=== PATIENT | female | born 1965 | race Asian ===

== ENCOUNTER → 2017-05-27 | Outpatient (CLI) | payer OTHER | LOC: BHFA 13:30 | PROVIDERS: ATTEND Internal Medicine Cardiovascular Disease | DX: R55 Syncope and collapse (principal) ==

== ENCOUNTER → 2017-07-25 | Outpatient (CLI) | payer OTHER | LOC: SBRMNEURO 21:00 | PROVIDERS: ATTEND Psychiatry & Neurology Sleep Medicine | DX: Z13.89 Encounter for screening for other disorder (principal) ==

== ENCOUNTER 2017-09-26 11:02 | Inpatient (IN) | payer OTHER ==
[2017-09-26] MEDS ORDERED: LORazepam 2 MG/ML INJ IM ONE (12:11)
[2017-09-26] MEDS ORDERED: OLANZapine 10 MG/2 ML VIAL ONE (13:27)
--- NOTE | 2017-09-26 13:27 | EDPHY ---
General - History Smoking Status: Current every day smoker Narrative: CHIEF COMPLAINT: SI HISTORY OF PRESENT ILLNESS: Patient reports feeling suicidal last night and cutting her left forearm with attempt to kill herself. She has been feeling very anxious and depressed and thus wanted to . This is not a new sensation for her, but is been more prominent. She reportedly arrive with her therapist at bedside, but the therapist is not there during my examination. She keeps telling me that she " is really anxious and needs something for anxiety right now. I'm not doing well. " She admits the self-harm and admits to wanting to do so we discharged her. Will not provide any modifying factors. Will not provide any radiating complaints. No other associated complaints or modifying factors obtainable. PSYCHIATRIC DIAGNOSES: Anxiety, depression, suicide attempt, PTSD, bipolar PRIOR PSYCHIATRIC EVALUATIONS: Multiple. Psychiatrist is Dr. Adhikari. PCP Dr. Luciano. Therapist is Humaira Haque M1/DETAINER: 1:27 p.m., September 26, [address] Eddie Mccoy REVIEW OF SYSTEMS: Ten systems reviewed and are negative unless otherwise noted in the HPI EXAMINATION General Appearance: Alert, no distress, fidgeting anxious Head: normocephalic, atraumatic Eyes: Pupils equal and round, no conjunctival pallor or injection ENT, Mouth: Mucous membranes moist Neck: Normal inspection, supple, non-tender Respiratory: No retractions or distress Cardiovascular: Regular rate. Symmetric radial pulses 2+ Neurological: GCS 15. A&O, nonfocal, strength is symmetric in all 4 limbs Skin: Warm and dry, no rash. There is an 8 cm laceration of the left forearm, volar. No active bleeding. No foreign body. No exposure of the underlying tendon Extremities: Tenderness in the area of laceration of the left orbit. Range of motion symmetric in the extremities. Psychiatric: Mood and affect normal DIFFERENTIAL DIAGNOSES: Including but not limited to suicidal ideation, depression, anxiety, PTSD, bipolar disorder MDM: 1:27 p.m. Suicide attempt with ongoing anxiety. Left forearm laceration was done at 9:00 p.m. last night. It appears to be superficial but she will not allow me to formally evaluated. There is no pulsatile bleeding when she removed the dressing. I was contacted by the RN prior to my examination asking for assistance with her anxiety. I verbalized an order for Ativan 2 mg. This was administered but has not improved her symptoms. I have ordered Zyprexa for the anxiety. I will re-evaluate the wound when she will allow me to. Psychiatric evaluation will be necessary. I have completed an M1 hold, and Dr. Mccoy has signed. 2:27 p.m. Patient re-evaluated. She is now resting more comfortably. I have re- evaluated the left forearm wound. This will need irrigation and Steri-Strips but does not require suture repair, nor could we do so at this time given her delayed presentation. 3:30 p.m. Patient is asleep 4:25 p.m. [facility] imaging engineerBro. She recommends inpatient care. She is currently looking for placement at this time. 5:20 p.m. Patient is still awaiting placement at this time. I discussed the case with Dr. Mccoy. He will assume care the patient. Please see his note for final disposition. SUPERVISION: Patient was independently examined, but I discussed the case with my secondary supervising physician Dr. Mccoy. (Hal Spain) Medical Decision Making: I evaluated the patient again at 6:15 p.m.. Patient is stable. She and I discussed her depression and self injury. The exam shows now a Steri-Strips laceration to the left forearm. I reviewed the patient's labs and she and I discussed treatment plan including need for admission. She expresses understanding and agreement. Patient has been accepted at [address] [place] [address] for further evaluation I discussed this with the patient as well. She expresses understanding and agreement. (Eddie Mccoy) - Objective Vital Signs: Initial Vital Signs Temperature (C) 98.1 F 09/26/17 11:10 Heart Rate 105 H 09/26/17 11:10 Respiratory Rate 20 09/26/17 11:10 Blood Pressure 118/86 H 09/26/17 11:10 O2 Sat (%) 98 09/26/17 11:10 O2 Delivery Mode Room Air Allergies/Adverse Reactions: No Known Allergies Allergy (Verified 09/26/17 11:22) Home Medications: Medication Instructions Recorded Herbals/Supplements -Info Only 1 ea PO DAILY 09/26/17 Quetiapine Fumarate [Quetiapine 300 mg PO HS 09/26/17 Fumarate] busPIRone [Buspar (*)] 10 mg PO BID 09/26/17 clonazePAM [klonoPIN (*)] 2 mg PO BID 09/26/17 metFORMIN HCL [Metformin HCl] 500 mg PO BIDMEAL 09/26/17 Laboratory Results: Laboratory Results 09/26/17 14:46 09/26/17 13:06 09/26/17 13:06 Vitamin B12 992 pg/mL H pg/mL (239-931) TSH 0.376 uIU/mL L uIU/mL (0.465-4.680) Medications Given: Buspirone HCl (Buspar) 5 mg PO TID [facility] Stop: 03/26/18 15:59 Last Admin: 09/27/17 20:06 Dose: 5 mg Clonazepam (Klonopin) 1 mg PO HS [facility] Stop: 03/26/18 20:59 Last Admin: 09/27/17 20:06 Dose: 1 mg Docusate Sodium (Colace) 100 mg PO BID [facility] Stop: 03/26/18 11:14 Last Admin: 09/27/17 20:05 Dose: 100 mg Metformin HCl (Glucophage) 500 mg PO BIDMEAL [facility] Stop: 03/26/18 07:59 Last Admin: 09/27/17 20:06 Dose: 500 mg Olanzapine (Zyprexa Zydis) 10 mg PO Q4H PRN PRN Reason: Agitation, Psychosis Stop: 03/25/18 21:40 Last Admin: 09/27/17 17:43 Dose: 10 mg Quetiapine Fumarate (Seroquel) 200 mg PO BID [facility] Stop: 03/26/18 12:59 Last Admin: 09/27/17 20:05 Dose: 200 mg Quetiapine Fumarate (Seroquel) 400 mg PO [facility] Stop: 03/26/18 20:59 Last Admin: 09/27/17 20:05 Dose: 400 mg Discontinued Medications Buspirone HCl (Buspar) 10 mg PO BID [facility] Stop: 03/26/18 08:59 Last Admin: 09/27/17 08:20 Dose: 10 mg Clonazepam (Klonopin) 2 mg PO BID [facility] Stop: 03/25/18 21:44 Last Admin: 09/27/17 08:20 Dose: 2 mg Lorazepam (Ativan Injection) 2 mg IM EDNOW ONE Stop: 09/26/17 12:12 Last Admin: 09/26/17 12:16 Dose: 2 mg Olanzapine (Zyprexa Im Injection) 10 mg IM EDNOW ONE Stop: 09/26/17 13:31 Last Admin: 09/26/17 13:46 Dose: 10 mg Quetiapine Fumarate (Seroquel) 200 mg PO ONCE ONE Stop: 09/27/17 11:01 Last Admin: 09/27/17 10:54 Dose: 200 mg Departure - Departure Disposition: [facility] IP Clinical Impression: Suicidal ideation, Attempted suicide Condition: Fair
[2017-09-26] MEDS: OLANZapine 10 MG/2 ML VIAL IM ONE (13:46)
[2017-09-26 13:48] LABS: ANION GAP 12 mEq/L (8-16); CALCIUM 9.8 mg/dL (8.5-10.4); CARBON DIOXIDE 24 mEq/l (22-31); CHLORIDE 107 mEq/L (97-110); CREATININE 0.9 mg/dL (0.6-1.0); ETHANOL SERUM < 10 mg/dL (0-10); GLOMERULAR FILTRATION RATE > 60; GLUCOSE 95 mg/dL (70-100); POTASSIUM 4.2 mEq/L (3.5-5.2); SODIUM 143 mEq/L (134-144)
[2017-09-26 14:57] LABS: % IMMATURE GRANULYOCYTES 0.4 % (0.0-1.1); ABSOLUTE IMMATURE GRANULOCYTES 0.02 10^3/uL (0.00-0.10); ADD DIFF? NO; ADD MORPH? NO; ADD SCAN? NO; ATYPICAL LYMPHOCYTE FLAG 0 (0-99); FRAGMENT RBC FLAG 0 (0-99); HEMATOCRIT 43.8 % (38.0-47.0); LEFT SHIFT FLG 0 (0-99); LIPEMIA HEMOLYSIS FLAG 90 (0-99); MEAN CELL HEMOGLOBIN 31.6 pg (27.9-34.1); MEAN CELL HEMOGLOBIN CONCENTR. 34.2 g/dL (32.4-36.7); MEAN CELL VOLUME 92.2 fL (81.5-99.8); MEAN PLATELET VOLUME 9.8 fL (8.7-11.7); PLATELET CLUMPS FLAG 0 (0-99); PLATELET COUNT 206 10^3/uL (150-400); RED BLOOD CELL COUNT 4.75 10^6/uL (4.18-5.33); RED CELL DISTRIBUTION WIDTH 11.5 % (11.5-15.2)
[2017-09-26] MEDS ORDERED: LORazepam 0.5 MG TAB PO PRN (21:41)
[2017-09-26] MEDS ORDERED: NICOTINE POLACRILEX 2 MG GUM B PRN (21:41)
[2017-09-26] MEDS ORDERED: MAG HYDROX/AL HYDROX/SIMETH 30 ML UDCUP PO PRN (21:41)
[2017-09-26] MEDS ORDERED: MAGNESIUM HYDROXIDE 30 ML UDCUP PO PRN (21:41)
[2017-09-26] MEDS: clonazePAM 1 MG TAB PO SCH (22:02)
[2017-09-26] MEDS: OLANZapine DISINTEGR 10 MG TAB PO PRN (22:02)
[2017-09-27] MEDS: clonazePAM 1 MG TAB PO SCH (08:20)
[2017-09-27] MEDS: metFORMIN HCL 500 MG TAB PO SCH ×2 (08:20→20:06)
[2017-09-27] MEDS ORDERED: busPIRone 10 MG TAB PO SCH (09:00)
[2017-09-27] MEDS ORDERED: QUEtiapine FUMARATE 200 MG TAB PO ONE (11:00)
[2017-09-27] MEDS ORDERED: clonazePAM 0.5 MG TAB PO PRN (11:09)
[2017-09-27] MEDS: QUEtiapine FUMARATE 200 MG TAB PO SCH ×3 (11:42→20:05)
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
[2017-09-27] MEDS: DOCUSATE SODIUM 100 MG CAP PO SCH ×2 (12:18→20:05)
--- NOTE | 2017-09-27 13:30 | SOAPPROG ---
SOAP Progress Note Assessment/Plan: Assessment: Plan: Subjective: Spoke with Dr. Adhikari. He reports patient was on Clonazepam 0.5mg PRN anxiety, max 2mg/day. He reports patient had some benefit from Buspar and would recommend continuing this medication and taper/reduce Clonazepam. Agrees with assessment of Bipolar Disorder with psychotic features, PTSD, Borderline PD. Objective: Vital Signs Temp Pulse Resp BP Pulse Ox 36.4 C 88 14 99/55 L 94 09/27/17 06:00 09/27/17 06:00 09/27/17 06:00 09/27/17 06:00 09/27/17 06:00 ICD10 Worksheet Patient Problems: Problems Problem Status Onset Attempted suicide Acute Bipolar disorder, curr episode depressed, severe, w/psychotic features Acute Borderline personality disorder Acute Posttraumatic stress disorder Acute Suicidal ideation Acute
--- NOTE | 2017-09-27 13:38 | BCON ---
[f rep st] BEHAVIORAL HEALTH CONSULTATION INTERNAL MEDICINE CONSULTATION DATE OF CONSULTATION: 09/27/2017 REFERRING PHYSICIAN: Albin Gomez MD REASON FOR REFERRAL: Medical clearance for inpatient behavioral health stay. HISTORY OF PRESENT ILLNESS: This patient came to the [facility] Emergency Department yesterday. She had cut her left forearm the night before in an attempt to commit suicide. She had been feeling anxious and depressed. She was evaluated by the mental health team and admitted for further psychiatric care. She currently is without any acute complaints. PAST MEDICAL HISTORY: 1. Ruptured cerebral aneurysm in 1997. 2. Psychiatric diagnoses including bipolar disorder, PTSD, and borderline personality disorder. 3. Multiple intestinal obstructions. 4. Renal abscess. 5. Hyperthyroidism. PAST SURGICAL HISTORY: She has had a drainage of the renal abscess, and she reports she has had 6 abdominal surgeries for intestinal obstructions. She had initial surgery when she was 16, she is not exactly sure of the indication for that surgery. SOCIAL HISTORY: She is . She moved to [place] approximately 3 years ago to be near her sister. Her sister often stays with her. She is a cigarette smoker. FAMILY HISTORY: Significant for mental health issues. REVIEW OF SYSTEMS: She has lost greater than 20 pounds over several months. She reports she is losing weight because she is taking metformin, and that was the reason that medication was prescribed. She denies symptoms referable to the thyroid including no fatigue, no tremor, no sweats, and no change in bowel habits. Otherwise, a 10-point review of systems is negative. PHYSICAL EXAM: GENERAL: This is a well-nourished, well-developed woman, appears her chronologic age, cooperative, in no acute distress. HEENT: Extraocular movements are intact. Pupils are equal, round, reactive to light. Mucous membranes are moist. Dentition is in good condition. NECK: Supple with no thyromegaly. HEART: There is a regular rate and rhythm with no murmurs , rubs, or gallops. LUNGS: Clear to auscultation bilaterally. ABDOMEN: Has a midline surgical scar. Abdomen is soft, nontender, nondistended with normoactive bowel sounds. EXTREMITIES: There is no cyanosis, clubbing, or edema. There is approximately an 8 cm superficial laceration on the palmar aspect of the left forearm, closed with Steri-Strips with minimal eschar along the laceration, and no drainage or erythema. NEUROLOGIC: She is alert and oriented x3. Cranial nerves 2-12 are grossly intact. There is no focal weakness. Sensation is intact to light touch. ASSESSMENT AND RECOMMENDATIONS: 1. Mental health issues, pending further evaluation and management per Psychiatry and the mental health team. 2. Tobacco dependence syndrome. Advised smoking cessation. 3. Superficial laceration. Needs no particular care. 4. Weight loss. Unclear whether it is due to taking metformin or related to history of thyroid disease versus mental health issues. It is more than would be expected from taking metformin. Observe for normalization of oral intake. 5. History of hyperthyroidism. She reports that she was under the care of an commissary agent and no longer has thyroid abnormality. She said she had a thyroid test in the past week that came out as normal, so I will not recommend further testing of the thyroid. I see no medical contraindications to this patient's continued stay on the inpatient behavioral health unit or to any psychiatric medications or procedures. Thank you very much for including me in the care of this patient and please do not hesitate to contact me or the Hospitalist Service should there be need for further medical evaluation. /[id number]/MODL MTDD
[2017-09-27] MEDS: OLANZapine DISINTEGR 10 MG TAB PO PRN (17:43)
[2017-09-27] MEDS: busPIRone 5 MG TAB PO SCH ×2 (17:43→20:06)
[2017-09-27] MEDS ORDERED: clonazePAM 1 MG TAB PO SCH (21:00)
[2017-09-27] MEDS ORDERED: QUEtiapine FUMARATE 300 MG TAB PO SCH (21:00)
[2017-09-28] MEDS: metFORMIN HCL 500 MG TAB PO SCH ×2 (08:05→16:22)
[2017-09-28] MEDS: busPIRone 5 MG TAB PO SCH (08:05)
[2017-09-28] MEDS: QUEtiapine FUMARATE 200 MG TAB PO SCH ×2 (08:06→20:25)
[2017-09-28] MEDS: DOCUSATE SODIUM 100 MG CAP PO SCH ×2 (08:06→20:25)
--- NOTE | 2017-09-28 10:42 | SOAPPROG ---
SOAP Progress Note Assessment/Plan: Assessment: Bipolar Disorder type I, depressed with mixed and psychotic features Borderline Personality Disorder with chronic suicidal thoughts and chronic self- harm History of Post-Traumatic Stress Disorder Sedative Use Disorder Post-menopausal, borderline type II diabetes Possible borderline hyperthyroidism Patient reported taking 4mg Klonopin daily prior to admission but was prescribed 0.5mg QID PRN anxiety per psychiatrist, confirmed in PDMP. Patient admitted on M-1 hold after cutting left arm and reporting suicidal thoughts to outpatient therapist. Patient appears dysphoric, irritable, and paranoid with and cut on arm with a plastic fork this AM 09/28. Patient has a history of chronic suicidal thoughts and superficial cutting on arms since age 18. Patient reported violent thoughts without plan or intent, toward sister 09/27/17. Plan: Patient on M-1 hold Line of sight precautions to reduce self-harm Education about Borderline Personality Disorder. Discussed mindfulness and distraction and relaxation skills. Spoke on phone with sister Camila Lira [phone]. Discussed patient made violent statements toward her, duty to warn. Request hospitalist exam right forearm superficial cut to clarify if it needs sutures or futher thyroid function testing Continue Seroquel 200mg QAM, 200mg QPM, 400mg QHS for mood stability and paranoia, increased after admission Discontinue Buspar, ineffective Reduce/taper Klonopin 0.5mg QHS Continue Hydroxyzine 25mg [id number] PRN anxiety or insomnia Discussed risks/benefits of Depakote for mood stabilization and sedative withdrawal management, including risk of hepatitis, pancreatitis, thrombocytopenia, sedation, delirium Start Depakote 250mg PO TID Monitor mood stability, paranoia, violent thoughts, impulse control, judgment, coping skills to manage chronic thoughts of self-harm 09/28/17 10:46 Subjective: "Really depressed, really upset, everyone is against me, other patients can say what ever they want, no one likes me, I grabbed a fork and cut myself" Patient reports yesterday reporting in group that she reported thoughts to hurt her sister and continued thoughts of killing herself 'then everyone was against me, they were talking about me, no one wants to help me.' Reports later feeling upset and suicidal. Slept overnight but this AM took a plastic fork and cut right forearm. Reports feeling hopeless with no reason to live. Reports no coping skills to use if having thoughts of self-harm or urges to harm self on the unit. Reports yesterday having brief thoughts of wanting to hurt or kill her sister. Reports no intention to to this 'I love my sister' and no specific plan to hurt her sister if she was not in the hospital. Denies stiffness or excessive sedation from increased Seroquel. Patient reports past [place] trial in the past was not helpful. Reports no benefit from past trials of Prozac, Paxil, Zoloft, and Wellbutrin. Objective: Vital Signs Temp Pulse Resp BP Pulse Ox 37.1 C 95 16 101/58 L 96 09/28/17 06:00 09/28/17 06:00 09/28/17 06:00 09/28/17 06:00 09/28/17 06:00 Alert female. Superficial laceration right forearm and left forearm. Sitting alone in room on floor initially. Speech RRR, loud at times. Mood ' depressed' affect irritable, angry, sad. Thoughts organized. Reports feeling hopeless and suicidal and cut arm this AM with plastic fork. Reports violent thoughts yesterday toward sister, denies intent or plan. Reports AH of whispering yesterday but not today. Reports paranoia 'everyone is against me.' Insight poor, judgment impaired. B12 WNL. TSH borderline low. Staff reports patient yesterday in group reported thoughts of harming her sister , without plan or intent, but was screaming and agitated and crying in group. Patient was labile, screaming, crying, angry but compliant with medications and slept 8-9 hours. - Time Spent With Patient Time Spent With Patient: 45 minutes - Pending Discharge Pending Discharge Within 24 Hours: No Pending Discharge Within 48 Hours: No ICD10 Worksheet Patient Problems: Problems Problem Status Onset Attempted suicide Acute Bipolar disorder, curr episode depressed, severe, w/psychotic features Acute Borderline personality disorder Acute Posttraumatic stress disorder Acute Suicidal ideation Acute
[2017-09-28] MEDS: OLANZapine DISINTEGR 10 MG TAB PO PRN ×2 (12:23→16:28)
[2017-09-28] MEDS ORDERED: DIVALPROEX NA 250 MG TAB PO ONE (13:02)
--- NOTE | 2017-09-28 13:11 | SOAPPROG ---
SOAP Progress Note Assessment/Plan: Assessment: # lacerations. Healing well on left forearm. Very superficial on right forearm with no indication for any treatment. # hyperthyroidism. TSH mildly suppressed. Get records from [facility]. Patient previously reported to me that her thyroid had normalized and that she was not under treatment anymore. 09/28/17 13:09 Subjective: Asked to see patient regarding laceration on right forearm, self-inflicted with plastic fork, and regarding TSH result. She is without any acute complaints. Objective: Vital Signs Temp Pulse Resp BP Pulse Ox 37.1 C 95 16 101/58 L 96 09/28/17 06:00 09/28/17 06:00 09/28/17 06:00 09/28/17 06:00 09/28/17 06:00 Physical Exam - Physical Exam General Appearance: WD/WN, alert, no apparent distress Respiratory: No respiratory distress, No accessory muscle use Skin: normal color, warm/dry, other (Laceration on left volar forearm with Steri -Strips in place, a eschar minimal along laceration, no erythema or discharge. Very superficial laceration volar right forearm approximately 15 cm.) Neuro/Psych: no motor/sensory deficits, alert, normal mood/affect, oriented x 3 ICD10 Worksheet Patient Problems: Problems Problem Status Onset Attempted suicide Acute Bipolar disorder, curr episode depressed, severe, w/psychotic features Acute Borderline personality disorder Acute Posttraumatic stress disorder Acute Suicidal ideation Acute
[2017-09-28] MEDS: DIVALPROEX NA 250 MG TAB PO SCH ×2 (16:22→20:25)
[2017-09-28] MEDS: clonazePAM 1 MG TAB PO SCH (20:25)
[2017-09-29] MEDS: DOCUSATE SODIUM 100 MG CAP PO SCH ×2 (07:49→20:49)
[2017-09-29] MEDS: DIVALPROEX NA 250 MG TAB PO SCH ×3 (07:50→20:49)
[2017-09-29] MEDS: QUEtiapine FUMARATE 200 MG TAB PO SCH ×3 (07:50→20:49)
[2017-09-29] MEDS: metFORMIN HCL 500 MG TAB PO SCH ×2 (07:55→18:06)
[2017-09-29] MEDS: ACETAMINOPHEN 325 MG TAB PO PRN ×2 (08:06→12:09)
--- NOTE | 2017-09-29 09:06 | SOAPPROG ---
SOAP Progress Note Assessment/Plan: Assessment: Bipolar Disorder type I, depressed with mixed and psychotic features Borderline Personality Disorder with chronic suicidal thoughts and chronic self- harm History of Post-Traumatic Stress Disorder Sedative Use Disorder Post-menopausal, borderline type II diabetes Possible thyroid disorder Patient reported taking 4mg Klonopin daily prior to admission but was prescribed 0.5mg QID PRN anxiety per psychiatrist, confirmed in PDMP. Patient admitted on M-1 hold after cutting left arm and reporting suicidal thoughts to outpatient therapist. Patient cut right arm with a plastic fork AM 09/28 and was cutting right arm with an nyla board 09/28 PM. Patient has a history of chronic suicidal thoughts and superficial cutting on arms since age 18. Patient reported violent thoughts without plan or intent, toward sister 09/27/17 , sister notified. Patient received Zydis PRN yesterday PM for agitation; patient is tolerating Depakote and increased Seroquel and appears more calm and less distressed this AM but has continued urges for self-harm without clear coping skills. Plan: Patient on M-1 hold File Short Term Certification,, patient a danger to herself Line of sight precautions to reduce self-harm Education about Borderline Personality Disorder. Discussed mindfulness and distraction and relaxation skills. Continue Seroquel 200mg QAM, 200mg QPM, 400mg QHS for mood stability and paranoia, increased after admission Taper Klonopin 0.5mg PO QHS for > one week Continue Hydroxyzine 25mg [id number] PRN anxiety or insomnia, Zydis 10mg PRN agitation Continue Depakote 250mg PO TID, started 09/28 for mood stabilization and to assist with sedative taper Monitor mood stability, paranoia, violent thoughts, impulse control, judgment, coping skills to manage chronic thoughts of self-harm Requested records from [facility] 09/29/17 09:06 Subjective: 'doing better, more calm, less racing thoughts.' Patient reports overall feeling improved this AM. Reports a reduction in racing thoughts and feeling less agitated, denies paranoia or AH. Reports yesterday having severe mood swings and agitation, tried to mutilate self by rubbing nail-file nyla board on right forearm. Reports sleeping better last night and tolerating Depakote so far without side effects. Reports she doesn't want to harm her sister, has never been violent toward sister, and reports not owning a gun. Reports feeling rejected and abandoned and betrayed by sister, who lied to her about sisters trip to [place]. Reports continued urges to cut on arm due to 'intense emotions.' Reports she doesn't care if she lives or dies. Unable to name coping skills to use if having urges to self-harm. Objective: Vital Signs Temp Pulse Resp BP Pulse Ox 36.7 C 92 16 107/60 94 09/29/17 06:00 09/29/17 06:00 09/29/17 06:00 09/29/17 06:00 09/29/17 06:00 Alert female, ambulatory, appears slowed. Speech RRR soft voice. Mood 'doing better, more calm, less racing thoughts.' Affect restricted. Thoughts organized but circumstantial. Denies SI or HI but reports continued urges to cut on arm. Denies violent thoughts toward sister or others. Denies AH or paranoia. Staff report patient slept overnight. Yesterday was cutting on right forearm with a nyla board, which was confiscated. Compliant with medications. Got a PRN Zydis 10mg for agitation at 16:30. - Time Spent With Patient Time Spent With Patient: 45 minutes - Pending Discharge Pending Discharge Within 24 Hours: No Pending Discharge Within 48 Hours: No ICD10 Worksheet Patient Problems: Problems Problem Status Onset Attempted suicide Acute Bipolar disorder, curr episode depressed, severe, w/psychotic features Acute Borderline personality disorder Acute Posttraumatic stress disorder Acute Suicidal ideation Acute
[2017-09-29] MEDS: hydrOXYzine HCL 25 MG TAB PO PRN (15:16)
[2017-09-29] MEDS: clonazePAM 1 MG TAB PO SCH (20:49)
[2017-09-30] MEDS: OLANZapine DISINTEGR 10 MG TAB PO PRN ×2 (01:20→10:25)
[2017-09-30] MEDS: hydrOXYzine HCL 25 MG TAB PO PRN (01:20)
[2017-09-30] MEDS: metFORMIN HCL 500 MG TAB PO SCH ×2 (08:16→16:56)
[2017-09-30] MEDS: DIVALPROEX NA 250 MG TAB PO SCH (08:17)
[2017-09-30] MEDS: DOCUSATE SODIUM 100 MG CAP PO SCH ×2 (08:17→21:13)
[2017-09-30] MEDS: QUEtiapine FUMARATE 200 MG TAB PO SCH ×3 (08:18→21:12)
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
[2017-09-30] MEDS: SENNOSIDES 1 TAB PO SCH ×2 (14:12→21:12)
[2017-09-30] MEDS ORDERED: DIVALPROEX NA 250 MG TAB PO ONE (14:15)
[2017-09-30] MEDS: DIVALPROEX NA 500 MG TAB PO SCH (21:12)
[2017-09-30] MEDS: clonazePAM 1 MG TAB PO SCH (21:13)
[2017-10-01] MEDS: hydrOXYzine HCL 25 MG TAB PO PRN ×2 (01:17→12:10)
[2017-10-01] MEDS: OLANZapine DISINTEGR 10 MG TAB PO PRN (01:17)
[2017-10-01] MEDS: metFORMIN HCL 500 MG TAB PO SCH ×2 (08:31→17:27)
[2017-10-01] MEDS: QUEtiapine FUMARATE 200 MG TAB PO SCH ×3 (08:31→19:48)
[2017-10-01] MEDS: SENNOSIDES 1 TAB PO SCH ×2 (08:31→19:47)
[2017-10-01] MEDS: DIVALPROEX NA 500 MG TAB PO SCH ×2 (08:31→19:47)
[2017-10-01] MEDS: DOCUSATE SODIUM 100 MG CAP PO SCH ×2 (08:32→19:47)
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
[2017-10-01] MEDS: clonazePAM 1 MG TAB PO SCH (19:48)
[2017-10-02] MEDS: OLANZapine DISINTEGR 10 MG TAB PO PRN ×2 (00:25→15:33)
[2017-10-02] MEDS: hydrOXYzine HCL 25 MG TAB PO PRN ×2 (01:35→12:57)
[2017-10-02] MEDS: ACETAMINOPHEN 325 MG TAB PO PRN ×2 (01:38→05:30)
[2017-10-02] MEDS: DOCUSATE SODIUM 100 MG CAP PO SCH ×2 (08:19→22:53)
[2017-10-02] MEDS: DIVALPROEX NA 500 MG TAB PO SCH ×2 (08:19→22:53)
[2017-10-02] MEDS: SENNOSIDES 1 TAB PO SCH ×2 (08:20→22:54)
[2017-10-02] MEDS: metFORMIN HCL 500 MG TAB PO SCH ×2 (08:20→17:36)
[2017-10-02] MEDS: QUEtiapine FUMARATE 200 MG TAB PO SCH ×3 (08:20→22:54)
--- NOTE | 2017-10-02 08:48 | HOSPPROG ---
Hospitalist Progress Note Assessment/Plan: 52 yo female with h/o Bipolar disorder, PTSD and borderline PD with chronic self harm is evaluated for self inflicted superficial right forearm wound. This does not appear infected, is non-purulent and no erythema. Some soft tissue inflammation is noted and would watch this closely for development of erythema or warmth, at which point oral keflex may be warranted. For now, recommend washing daily with soap and water and application of bacitracin is ok (per pt request). Needs daily eval to ensure no developing infection. Subjective: Pt doing ok. Says she cut her right forearm with a plastic knife and then rubbed an nyla board over it 4-5 days ago. No fevers. No purulence. Has some discomfort Objective: Vital Signs Temp Pulse Resp BP Pulse Ox 36.6 C 104 H 14 107/69 94 10/01/17 06:00 10/02/17 06:00 10/02/17 06:00 10/02/17 06:00 10/02/17 06:00 - Physical Exam Constitutional: no apparent distress Eyes: PERRL Ears, Nose, Mouth, Throat: moist mucous membranes Respiratory: no respiratory distress Skin: other (right forearm superficial laceration with associated soft tissue inflammation, but no purulence, no erythema or warmth. Granulation tissue is noted in the linear wound bed. ) Neurologic: AAOx3 Psychiatric: interacting appropriately ICD10 Worksheet Patient Problems: Problems Problem Status Onset Attempted suicide Acute Bipolar disorder, curr episode depressed, severe, w/psychotic features Acute Borderline personality disorder Acute Posttraumatic stress disorder Acute Suicidal ideation Acute
[2017-10-02] MEDS: BACITRACIN OINTMENT 1 PACKET TP SCH ×2 (12:57→22:09)
--- NOTE | 2017-10-02 13:38 | SOAPPROG ---
SOAP Progress Note Assessment/Plan: Assessment: Per Dr. Fleming's notes: Plan: Patient on Short Term Certification Line of sight, SP2 precautions to reduce self-harm Reviewed progress on DBT packet with patient. Continue Seroquel 200mg QAM, 200mg QPM, 400mg QHS for mood stability and paranoia, increased after admission Taper Klonopin : 0.5mg PO QHS for > one week Continue Hydroxyzine 25mg [id number] PRN anxiety or insomnia, Zydis 10mg PRN agitation Increase Depakote 500mg PO BID, started 09/28 for mood stabilization and to assist with sedative taper Check Depakote level 09/03/17 Monitor mood stability, paranoia, violent thoughts, impulse control, judgment, coping skills to manage chronic thoughts of self-harm Colace and Senokot for constipation Plan: 10/01/17 14:12 1. Continue LOS and SP2, though patient denies any intent or plan at current time, she has h/o impulsivity. 2. CCM - patient slowly improving, tolerating VPA w/o complaint or SE 3. Continue meds for constipation. Patient would like to try flax seed oil which is what she takes at home. Will need someone to bring it in for her. 10/02/17 13:33 1. Change to SP1 and LOS. Patient is able to contract for safety and has not exhibited any unsafe or risky behaviors recently. But will keep on LOS as precaution. 2. CCM -slowly improving, but patient continues to have somatic complaints 3. Will order Mag Sulfate since she says none of the other remedies have helped with constipation 4. VPA level on Tuesday Subjective: Met with patient, reviewed chart and d/w staff. Patient says she still hasn't gone to bathroom, and worries she will get "impacted" which has happened to her before. She's tried Colace and Senokot, fluids and prune juice without effect. She agrees to try Mag Sulfate which she has used at home with flax seed oil. She can't find anyone who can bring her flax seed oil to hospital for her to take here. She denies any SI/HI, and says she "will not hurt myself" on unit. She also says she is thinking more "positively" about the future and about her relationship with her SOC which was primary trigger for her SA. Her SOC is back from [place] and spoke to CC. SOC is willing to have family meeting this week prior to patient coming back home. Objective: Vital Signs Temp Pulse Resp BP Pulse Ox 36.6 C 104 H 14 107/69 94 10/01/17 06:00 10/02/17 06:00 10/02/17 06:00 10/02/17 06:00 10/02/17 06:00 MSE: Affect: Flat, sad Mood: "Sad" TP: Linear TC: Denies any SI/HI, no AH/VH Insight/Judgment: Fair - Time Spent With Patient Time Spent With Patient: 20" - Pending Discharge Pending Discharge Within 24 Hours: No Pending Discharge Within 48 Hours: No ICD10 Worksheet Patient Problems: Problems Problem Status Onset Attempted suicide Acute Bipolar disorder, curr episode depressed, severe, w/psychotic features Acute Borderline personality disorder Acute Posttraumatic stress disorder Acute Suicidal ideation Acute
[2017-10-02] MEDS ORDERED: MAGNESIUM CHLORIDE 64 MG TAB PO SCH (13:45)
[2017-10-02] MEDS ORDERED: MAGNESIUM CITRATE 300 ML BOTTLE PO ONE (14:00)
[2017-10-02] MEDS: clonazePAM 1 MG TAB PO SCH (22:52)
[2017-10-03] MEDS ORDERED: ONDANSETRON DISINTEGRATING 4 MG TAB PO PRN (00:36)
[2017-10-03] MEDS ORDERED: OXYCODONE/APAP 5/325 TAB PO PRN (00:42)
[2017-10-03] MEDS: QUEtiapine FUMARATE 200 MG TAB PO SCH ×4 (00:42→21:02)
[2017-10-03] MEDS: clonazePAM 1 MG TAB PO SCH ×2 (00:43→21:03)
[2017-10-03] MEDS: DIVALPROEX NA 500 MG TAB PO SCH ×3 (00:44→21:02)
[2017-10-03] MEDS: DOCUSATE SODIUM 100 MG CAP PO SCH (00:46)
[2017-10-03] MEDS: IBUPROFEN 600 MG TAB PO PRN (00:49)
--- NOTE | 2017-10-03 00:53 | SOAPPROG ---
SOAP Progress Note Assessment/Plan: Assessment: 52 yo female with h/o bipolar disorder and PTSD, admitted to after suicide attempt by cutting forearms. She attempted to injure herself again while on unit with plastic knife. She was sent to ED around 1999 on 10/02/17 with c/o severe abdominal pain and acute onset N/V. Patient has a h/o multiple abdominal surgeries including appendectomy, multiple bowel obstructions. ED physician ordered abdominal CT to r/o obstruction. On CT, no obstruction was noted. Here is report from ED note by Sowmya Arellano: Images reviewed by myself ED Course/Re-evaluation: 9:35 p.m.: Case discussed with secondary supervising physician Dr. Eddie Mccoy in the ER. Old medical records reviewed. This patient has had multiple abdominal surgeries including appendectomy, multiple bowel obstructions and bowel resections. She is at high risk of recurrent bowel obstruction. Recommended CT imaging. Indications risks benefits discussed with patient and she consents. 10:12 p.m.: CT abdominal study is negative for bowel obstruction positive constipation. Patient has no stool in the rectal vault. Soapsuds enema will be placed by nursing staff. 11:34 p.m.: Patient has been re-evaluated with serial examinations. In the ER she has been given a soapsuds enema and had release of small amount of brown stool. No significant bowel movement in the emergency department. She has no evidence of bowel obstruction on CT scan. Plan will be discharge back to [address] with instructions for GoLYTELY 1000 cc to be sipped until she has a bowel movement, not to consume all 4000 cc. Subjective: I reviewed the ED notes and discussed the case with the overnight RN, Antonia. Patient is still complaining of significant abdominal pain. She was given IV morphine 4mg x 2 doses in ED, as well as Zofran 4mg x 1. She also received soap suds enema with little result. Recommendation from ED is as follows: "Plan will be discharge back to [address] psychiatric unit with instructions for GoLYTELY 1000 cc to be sipped until she has a bowel movement, not to consume all 4000 cc," per Vitaliy Fisher' s note in consultation with Dr. Eddie Mccoy, the supervising MD. I have ordered the Golytely to begin as soon as patient wakes up in AM and instructed staff to administer only 1,000cc. Patient is to sip until she has a bowel movement. Since patient may be in considerable pain until she is able to have a bowel movement, this MD decided to order Percocet 5/325mg 1-2 tabs Q4HRS with max of 4 doses only until she begins the GoLytely treatment. Despite the face that opioid analgesics frequently cause/worsen constipation, it was determined that the benefits of short duration administration outweighed the risks since patient will be administered GoLytely within < 7 hrs. MD also ordered Zofran PRN for N/V. Objective: Vital Signs Temp Pulse Resp BP Pulse Ox 36.6 C 104 H 14 107/69 94 10/01/17 06:00 10/02/17 06:00 10/02/17 06:00 10/02/17 06:00 10/02/17 06:00 ICD10 Worksheet Patient Problems: Problems Problem Status Onset Attempted suicide Acute Bipolar disorder, curr episode depressed, severe, w/psychotic features Acute Borderline personality disorder Acute Posttraumatic stress disorder Acute Suicidal ideation Acute Constipation Acute
[2017-10-03] MEDS: BACITRACIN OINTMENT 1 PACKET TP SCH ×3 (00:58→20:59)
[2017-10-03] MEDS ORDERED: PEG 3350/NA SULF,BICARB,CL/KCL (GAVILYTE-G) 4000 ML BTL PO ONE ×2 (06:00→14:04)
--- NOTE | 2017-10-03 07:37 | SOAPPROG ---
SOAP Progress Note Assessment/Plan: Assessment: Bipolar Disorder type I, depressed with mixed and psychotic features Borderline Personality Disorder with chronic suicidal thoughts and chronic self- harm History of Post-Traumatic Stress Disorder Sedative Use Disorder Post-menopausal, borderline type II diabetes Possible thyroid disorder Constipation Patient reported taking 4mg Klonopin daily prior to admission but was prescribed 0.5mg QID PRN anxiety per psychiatrist, confirmed in PDMP. Patient admitted on M-1 hold after cutting left arm and reporting suicidal thoughts to outpatient therapist; patient had severe mood lability, severe agitation, and low level AH. Patient cut right arm with a plastic fork AM 09/28 and was cutting right arm with an nyla board 09/28 PM on unit. Patient reported violent thoughts without plan or intent, toward sister 09/27/17 , sister notified. Patient today appears calm and appropriate without SI or violent thoughts or AH ; has not had a BM since admission with ER evaluation yesterday Plan: Patient on Short Term Certification SP1/LOS precaution Monitor mood stability and risk of self-harm Family meeting with sister; possible discharge 10/05 if stable Continue Seroquel 200mg QAM, 200mg QPM, 400mg QHS for mood stability and paranoia, increased after admission Taper Klonopin : 0.5mg PO QHS for > one week Continue Hydroxyzine 25mg [id number] PRN anxiety or insomnia, Zydis 10mg PRN agitation Continue Depakote 500mg PO BID, started 09/28 for mood stabilization and to assist with sedative taper Check Depakote level 10/04/17 Colace, Senokot, GoLytley for constipation Discontinue PRN Percocet; Tylenol, Ibuprofen PRN pain 10/03/17 07:42 Subjective: CC: 'better, not as suicidal, not homicidal, freaked out by other patients, my stomach hurts.' Patient reports overweekend not having BM, had ER visit, compliant with drinking GoLytley. Reports some abdominal discomfort but no vomiting or nausea. Reports overall having stable mood over weekend without AH or SI. Reports severe anxiety and brief thoughts of cutting on self after two other patients had outbursts on unit (male patient screaming and threw a chair, a female patient screaming). Reports during those episodes feeling overwhelmed with brief thoughts of cutting self but did not try to harm self and does not intend to harm self. Denies violent thoughts toward sister and wants her to participate in a family meeting prior to discharge. Reports reduced racing thoughts and improved mood stability since starting Depakote along with remission of AH since admission. Reports feeling more hopeful about the future. Objective: Vital Signs Temp Pulse Resp BP Pulse Ox 36.3 C 105 H 16 111/68 93 10/03/17 06:00 10/03/17 00:30 10/03/17 06:00 10/03/17 06:00 10/03/17 06:00 ALert F. Ambulatory without tremors or weakness. Speech RRR. Mood ' better, not as suicidal, not homicidal, freaked out by other patients, my stomach hurts.' Thoughts organized. Denies SI or HI or AH or paranoia. Fair insight. Judgment appropriate. Staff report patient over weekend had anxiety, got PRN Zydis and PRN Hydroxyzine , following other patients outbursts (yelling, screaming), but otherwise calm and appropriate. Sent to ER yesterday for abdominal pain and continued constipation. Na 146, otherwise BMP WNL; LFTs WNL; Abdominal CT did not show obstruction; give enema in ER, started on GoLytley and PRN percocet. Patient transitioned to SP1/LOS yesterday. - Time Spent With Patient Time Spent With Patient: 30 minutes - Pending Discharge Pending Discharge Within 24 Hours: No Pending Discharge Within 48 Hours: Yes Pending Discharge Date: 10/05/17 Pending Discharge Time: 11:00 ICD10 Worksheet Patient Problems: Problems Problem Status Onset Attempted suicide Acute Bipolar disorder, curr episode depressed, severe, w/psychotic features Acute Borderline personality disorder Acute Posttraumatic stress disorder Acute Suicidal ideation Acute Constipation Acute
[2017-10-03] MEDS: metFORMIN HCL 500 MG TAB PO SCH ×2 (08:35→17:13)
[2017-10-03] MEDS: hydrOXYzine HCL 25 MG TAB PO PRN (08:56)
[2017-10-03] MEDS ORDERED: MAGNESIUM CITRATE 300 ML BOTTLE PO SCH (09:00)
--- NOTE | 2017-10-03 14:01 | SOAPPROG ---
SOAP Progress Note Assessment/Plan: Assessment: # constipation. Abdominal CT results were reassuring along with abdominal x- ray showing no signs of obstruction. Continue GoLYTELY; will order another 1000 cc. Once constipation has resolved advise resuming her outpatient bowel regimen. Consider discontinuation of hydroxyzine as it can be constipating. # hyperthyroidism. TSH mildly suppressed. Discussed with Dr. Lantigua at [facility]. She has not been treated [facility]. Reviewed records in [facility]. Thyroid studies were ordered by Dr. Marga Luciano, who is presumably the patient's primary care provider. Asked nursing to seek records on evaluation and treatment of hyperthyroidism from Dr. Luciano 10/03/17 15:31 Subjective: Asked to see patient regarding constipation. She was sent to the emergency department yesterday for constipation and abdominal pain. She reports no bowel movement times 14 days. She says that prior to her psychiatric hospitalization she managed chronic constipation with fish oil 2 capsules a day, Flax seed two capsules a day and magnesium oxide daily and that this was quite effective. She is very anxious because of history of repeat abdominal surgeries primarily for adhesions and is afraid that she will get another obstruction. Evaluation in the emergency department included abdominal x-ray and an abdominal CT and she was treated with an enema and sent back to inpatient [facility] with a prescription for 1000 cc of GoLYTELY solution. Objective: Vital Signs Temp Pulse Resp BP Pulse Ox 36.3 C 105 H 16 111/68 93 10/03/17 06:00 10/03/17 00:30 10/03/17 06:00 10/03/17 06:00 10/03/17 06:00 Physical Exam - Physical Exam General Appearance: WD/WN, alert, other (Anxious appearing) Abdomen: normal bowel sounds, soft, distended (Diffuse tenderness to light palpation) Neuro/Psych: no motor/sensory deficits, alert, normal mood/affect, oriented x 3 , No abnormal gait ICD10 Worksheet Patient Problems: Problems Problem Status Onset Attempted suicide Acute Bipolar disorder, curr episode depressed, severe, w/psychotic features Acute Borderline personality disorder Acute Posttraumatic stress disorder Acute Suicidal ideation Acute Constipation Acute
[2017-10-03] MEDS ORDERED: OLANZapine DISINTEGR 10 MG TAB PO PRN (14:53)
[2017-10-03] MEDS: OLANZapine DISINTEGR 5 MG TAB PO PRN (17:13)
[2017-10-04] MEDS: ACETAMINOPHEN 325 MG TAB PO PRN (06:21)
--- NOTE | 2017-10-04 08:34 | SOAPPROG ---
SOAP Progress Note Assessment/Plan: Assessment: Bipolar Disorder type I, depressed with mixed and psychotic features Borderline Personality Disorder with chronic suicidal thoughts and recurrent self-harm History of Post-Traumatic Stress Disorder Sedative Use Disorder Post-menopausal, borderline type II diabetes Constipation Patient admitted on M-1 hold after cutting left arm and reporting suicidal thoughts to outpatient therapist; patient had severe mood lability, severe agitation, and low level AH. Patient cut right arm with a plastic fork AM 09/28 and was cutting right arm with an nyla board 12/ PM on unit. Patient reported violent thoughts without plan or intent, toward sister 09/27/17 , sister notified. Patient today appears calm and appropriate this AM and reports using coping skills to manage suicidal thoughts and urges to self-harm. Plan: Patient on Short Term Certification SP1/LOS precaution Monitor mood stability and risk of self-harm Family meeting with sister today to review discharge planning Continue Seroquel 200mg QAM, 200mg QPM, 400mg QHS for mood stability and paranoia, increased after admission Continue Klonopin 1mg QHS, reduced from previous Continue Zydis 5mg PRN agitation Continue Depakote 500mg PO BID, started 09/28 for mood stabilization and to assist with sedative taper Depakote level pending Education about bipolar disorder with psychotic features and Borderline Personality Disorder Continue Colace, Senokot for constipation Ordered Fish Oil 1000mg/day and MagOxide 400mg/day for chronic constipation 10/04/17 08:34 Subjective: "I feel better" Patient reports yesterday after drinking GoLytley for several hours having massive explosive loose stools. Reports feeling improved after resting overnight and denies abdominal pain or nausea this AM. Took Zydis 5mg yesterday PM for agitation and mood swings and felt more calm. Reports visit from sister went well. Reports sister will assist her in monitoring medication compliance and take her to follow up appointments. Reports benefit from reading DBT packet and reports wanting to use coping skills to manage thoughts of self-harm. Reports yesterday having brief intense SI and urges to harm self but was able to talk to staff and regulate emotions and did not self-harm. Reports wanting to go for a walk, listen to music, talk to friends/family, and use mindfulness skills if having thoughts of self harm. Objective: Vital Signs Temp Pulse Resp BP Pulse Ox 36.7 C 95 14 101/59 L 96 12/12/17 05:00 10/04/17 05:00 10/04/17 05:00 10/04/17 05:00 10/04/17 05:00 Alert female. Ambulates slowly. No tremors or rigidity. Mood 'better' affect restricted. Thoughts organized. Denies SI or HI but reports fear of harming herself 'If I get really upset.' Denies AH or paranoia. Memory fair. Judgment appropriate. Insight fair. Staff reports patient had numerous loose stools yesterday, slept overnight 6 hours, calm but reporting episodic SI without intent/plan on unit. Sister visited without problems, brought in patients OTC medications, including flax seed oil and magnesium supplements that patient takes daily for constipation. - Time Spent With Patient Time Spent With Patient: 30 minutes - Pending Discharge Pending Discharge Within 24 Hours: Yes Pending Discharge Date: 10/05/17 Pending Discharge Time: 11:00 ICD10 Worksheet Patient Problems: Problems Problem Status Onset Attempted suicide Acute Bipolar disorder, curr episode depressed, severe, w/psychotic features Acute Borderline personality disorder Acute Posttraumatic stress disorder Acute Suicidal ideation Acute
[2017-10-04] MEDS: QUEtiapine FUMARATE 200 MG TAB PO SCH ×3 (09:00→19:06)
[2017-10-04] MEDS: DIVALPROEX NA 500 MG TAB PO SCH ×2 (09:00→19:06)
[2017-10-04] MEDS: metFORMIN HCL 500 MG TAB PO SCH ×2 (09:00→16:55)
[2017-10-04] MEDS: BACITRACIN OINTMENT 1 PACKET TP SCH ×2 (10:17→19:08)
[2017-10-04] MEDS: MAGNESIUM OXIDE 400 MG TAB PO SCH (10:55)
[2017-10-04] MEDS: OMEGA-3 FATTY ACIDS 1,000 MG CAP PO SCH (10:56)
[2017-10-04] MEDS: OLANZapine DISINTEGR 5 MG TAB PO PRN (12:39)
[2017-10-04] MEDS: clonazePAM 1 MG TAB PO SCH (19:06)
[2017-10-05] MEDS: ACETAMINOPHEN 325 MG TAB PO PRN ×2 (00:25→13:03)
[2017-10-05] MEDS: OLANZapine DISINTEGR 5 MG TAB PO PRN ×2 (00:26→13:28)
[2017-10-05] MEDS: IBUPROFEN 600 MG TAB PO PRN (02:10)
[2017-10-05 06:13] VITALS: BP 115/56; PULSE 106; RESP 12; TEMP 97.3; O2SAT 92
[2017-10-05] MEDS: DIVALPROEX NA 500 MG TAB PO SCH (08:48)
[2017-10-05] MEDS: OMEGA-3 FATTY ACIDS 1,000 MG CAP PO SCH (08:48)
[2017-10-05] MEDS: QUEtiapine FUMARATE 200 MG TAB PO SCH (08:48)
[2017-10-05] MEDS: MAGNESIUM OXIDE 400 MG TAB PO SCH (08:48)
[2017-10-05] MEDS: metFORMIN HCL 500 MG TAB PO SCH (08:48)
[2017-10-05] MEDS ORDERED: FOLIC ACID 1 MG TAB PO SCH (09:00)
[2017-10-05] MEDS ORDERED: CHOLECALCIFEROL VIT D3 2,000 UNITS TAB/CAP PO SCH (09:00)
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
[2017-10-05] MEDS: BACITRACIN OINTMENT 1 PACKET TP SCH (12:19)
== END 2017-10-05 14:35 | disposition home or self-care (01) | DRG 885 ==
LOC: BBEH 21:15
PROVIDERS: ADMIT Psychiatry & Neurology Psychiatry
DX: F31.5 Bipolar disorder, current episode depressed, severe, with psychotic features (principal); F43.10 Post-traumatic stress disorder, unspecified; E05.90 Thyrotoxicosis, unspecified without thyrotoxic crisis or storm; R63.4 Abnormal weight loss; K59.00 Constipation, unspecified; Z78.0 Asymptomatic menopausal state; R73.03 Prediabetes; F17.200 Nicotine dependence, unspecified, uncomplicated; F13.20 Sedative, hypnotic or anxiolytic dependence, uncomplicated
CPT/HCPCS: 80305; 82607-90; G0480; J2060

== ENCOUNTER 2017-10-02 20:41 | Emergency (ER) | payer OTHER ==
[2017-10-02 20:49] VITALS: PULSE 107; RESP 16
--- NOTE | 2017-10-02 20:50 | EDPHY ---
H & P Stated Complaint: ABD distention, no BM in 14 days - Personal History Current Tetanus/Diphtheria Vaccine: Unsure Current Tetanus Diphtheria and Acellular Pertussis (TDAP): Unsure - Medical/Surgical History Hx Asthma: No Hx Chronic Respiratory Disease: No Hx Diabetes: No Hx Cardiac Disease: No Hx Renal Disease: No Hx Cirrhosis: No Hx Alcoholism: No Hx HIV/AIDS: No Hx Splenectomy or Spleen Trauma: No Other PMH: IBS, PTSD, Narcotic dependency - Social History Smoking Status: Current every day smoker Time Seen by Provider: 10/02/17 20:46 HPI/ROS: CHIEF COMPLAINT: Abdominal distension, possible constipation HISTORY OF PRESENT ILLNESS: 52-year-old female history of PTSD, bipolar disorder , currently in a psychiatric unit for self harm at [facility], transferred to [facility] ER for abdominal distension, nausea, vomiting, possible constipation. No urinary abnormality. Passing flatness. PRIMARY CARE PROVIDER: REVIEW OF SYSTEMS: A ten point review of systems was performed and is negative with the exception of the items mentioned in the HPI PAST MEDICAL & SURGICAL HISTORY: PTSD. Bipolar disorder. Appendectomy. Multiple bowel obstructions SOCIAL HISTORY: Nonsmoker PHYSICAL EXAM (Prior to examination, patient consented to physical exam, hands were washed and my usual and customary physical exam procedures followed) 1) GENERAL: Well-developed, well-nourished, alert and oriented. Appears uncomfortable. 2) HEAD: Normocephalic, atraumatic 3) HEENT: Pupils equal, round, reactive to light bilaterally. Sclera anicteric. 4) NECK: Full range of motion, no meningeal signs. 5) LUNGS: Clear auscultation bilaterally, no wheezes, no rhonchi, no retractions. 6) HEART: Regular rate and rhythm, no murmur, no heave, no gallop. 7) ABDOMEN: diffusely tender to palpation all quadrants. Distended., 8) MUSCULOSKELETAL: Moving all extremities, no focal areas of tenderness, no obvious trauma. No peripheral edema or discoloration. 9) BACK: No CVA tenderness, no midline vertebral tenderness, no fluctuance, no step-off, no obvious trauma, no visual or palpable abnormality. 10) SKIN: No rash, no petechiae. 11) Psychiatric: Patient is oriented X 3, there is no agitation. 12) RECTAL: No stool in the rectal vault. Exam with niya Galvez at bedside. DIFFERENTIAL DIAGNOSIS: No particular include but limited to constipation, bowel obstruction, malignancy (Arian Arellano) Constitutional: Initial Vital Signs Temperature (C) 36.8 C 10/02/17 20:45 Heart Rate 107 H 10/02/17 20:45 Respiratory Rate 16 10/02/17 20:45 Blood Pressure 123/86 H 10/02/17 20:45 O2 Sat (%) 94 10/02/17 20:45 O2 Delivery Mode Room Air Allergies/Adverse Reactions: cariprazine Allergy (Verified 09/29/17 11:41) Home Medications: Medication Instructions Recorded Herbals/Supplements -Info Only 1 ea PO DAILY 09/26/17 Quetiapine Fumarate [Quetiapine 300 mg PO HS 09/26/17 Fumarate] busPIRone [Buspar (*)] 10 mg PO BID 09/26/17 clonazePAM [klonoPIN (*)] 2 mg PO BID 09/26/17 metFORMIN HCL [Metformin HCl] 500 mg PO BIDMEAL 09/26/17 Medical Decision Making - Diagnostics Imaging Results: Images reviewed by myself (Arian Arellano) ED Course/Re-evaluation: 9:35 p.m.: Case discussed with secondary supervising physician Dr. Eddie Mccoy in the ER. Old medical records reviewed. This patient has had multiple abdominal surgeries including appendectomy, multiple bowel obstructions and bowel resections. She is at high risk of recurrent bowel obstruction. Recommended CT imaging. Indications risks benefits discussed with patient and she consents. 10:12 p.m.: CT abdominal study is negative for bowel obstruction positive constipation. Patient has no stool in the rectal vault. Soapsuds enema will be placed by nursing staff. 11:34 p.m.: Patient has been re-evaluated with serial examinations. In the ER she has been given a soapsuds enema and had release of small amount of brown stool. No significant bowel movement in the emergency department. She has no evidence of bowel obstruction on CT scan. Plan will be discharge back to [address] with instructions for GoLYTELY 1000 cc to be sipped until she has a bowel movement, not to consume all 4000 cc. (Arian Arellano) I did not see this patient while she was in the emergency department. However her care was discussed with the PA while the patient was in the department. I agree with treatment plan and management. I am the secondary supervising staff physician (Eddie Mccoy) - Data Points Laboratory Results: Laboratory Results 10/02/17 21:11 10/02/17 21:00 Medications Given: Discontinued Medications Sodium Chloride (Ns) 1,000 mls @ 0 mls/hr IV ONCE ONE PRN Reason: Wide Open Stop: 10/02/17 20:59 Last Admin: 10/02/17 21:05 Dose: 1,000 mls Morphine Sulfate (Morphine) 4 mg IVP EDNOW ONE Stop: 10/02/17 20:54 Last Admin: 10/02/17 21:02 Dose: 4 mg Morphine Sulfate (Morphine) 4 mg IVP EDNOW ONE Stop: 10/02/17 22:31 Last Admin: 10/02/17 22:32 Dose: 4 mg Ondansetron HCl (Zofran) 4 mg IVP EDNOW ONE Stop: 10/02/17 20:54 Last Admin: 10/02/17 21:02 Dose: 4 mg Departure - Departure Disposition: [facility] IP Clinical Impression: Constipation Condition: Good Instructions: Polyethylene Glycol 3350/Electrolytes (By mouth), Constipation ( ED), High Fiber Diet (ED) Additional Instructions: Sip 1000 cc of GoLYTELY until you have a bowel movement. Do not consume the entire 4000 cc. Referrals: Marga Luciano MD [Primary Care Provider] - As per Instructions
[2017-10-02] MEDS ORDERED: ONDANSETRON 4 MG/2 ML VIAL IVP ONE (20:53)
[2017-10-02] MEDS ORDERED: NS 1,000 ML IV ONE (20:58)
[2017-10-02 21:16] LABS: % IMMATURE GRANULYOCYTES 0.8 % (0.0-1.1); ABSOLUTE IMMATURE GRANULOCYTES 0.05 10^3/uL (0.00-0.10); ADD DIFF? NO; ADD MORPH? NO; ADD SCAN? NO; ATYPICAL LYMPHOCYTE FLAG 0 (0-99); FRAGMENT RBC FLAG 0 (0-99); HEMATOCRIT 41.5 % (38.0-47.0); HEMOGLOBIN 14.7 g/dL (12.6-16.3); LEFT SHIFT FLG 0 (0-99); LIPEMIA HEMOLYSIS FLAG 90 (0-99); MEAN CELL HEMOGLOBIN 32.6 pg (27.9-34.1); MEAN CELL HEMOGLOBIN CONCENTR. 35.4 g/dL (32.4-36.7); MEAN PLATELET VOLUME 9.9 fL (8.7-11.7); PLATELET CLUMPS FLAG 30 (0-99); PLATELET COUNT 209 10^3/uL (150-400); RED BLOOD CELL COUNT 4.51 10^6/uL (4.18-5.33); RED CELL DISTRIBUTION WIDTH 11.8 % (11.5-15.2)
[2017-10-02 21:28] LABS: ALANINE AMINOTRANSFERASE 33 IU/L (9-52); ALBUMIN 4.5 g/dL (3.5-5.0); ALKALINE PHOSPHATASE 92 IU/L (38-126); ANION GAP 18 mEq/L (8-16); ASPARTATE AMINOTRANSFERASE 25 IU/L (14-46); BILIRUBIN,TOTAL 0.2 mg/dL (0.1-1.4); BILIRUBIN-CONJUGATED 0.2 mg/dL (0.0-0.5); CALCIUM 10.3 mg/dL (8.5-10.4); CARBON DIOXIDE 25 mEq/l (22-31); CHLORIDE 103 mEq/L (97-110); CREATININE 0.9 mg/dL (0.6-1.0); GLOMERULAR FILTRATION RATE > 60; GLUCOSE 101 mg/dL (70-100); POTASSIUM 4.3 mEq/L (3.5-5.2); SODIUM 146 mEq/L (134-144); TOTAL PROTEIN 7.4 g/dL (6.3-8.2)
[2017-10-02] MEDS ORDERED: IOPAMIDOL (ISOVUE-300) 100 ML BTL ONE (21:44)
[2017-10-02] MEDS ORDERED: PEG 3350/NA SULF,BICARB,CL/KCL (GAVILYTE-G) 4000 ML BTL PO ONE (23:30)
[2017-10-03 00:14] VITALS: BP 126/101; TEMP 98.1; O2SAT 92
== END 2017-10-03 00:10 ==
LOC: EDUNIT#
DX: K59.00 Constipation, unspecified (principal)
CPT/HCPCS: 74000; 74177; 96361; 96374; 96375; 96376; 99285; J2405; Q9967; 82947-QW

== ENCOUNTER 2018-07-10 12:26 | Emergency (ER) | payer OTHER ==
[2018-07-10] MEDS ORDERED: LORazepam 2 MG/ML INJ ONE (12:53)
[2018-07-10] MEDS ORDERED: LORazepam 2 MG/ML INJ IVP ONE (12:58)
[2018-07-10] MEDS ORDERED: NS 1,000 ML IV ONE (13:03)
[2018-07-10] MEDS ORDERED: OLANZapine 10 MG/2 ML VIAL IV ONE (13:05)
[2018-07-10 13:13] LABS: PLATELET COUNT 343 10^3/uL (150-400)
--- NOTE | 2018-07-10 13:13 | EDPHY ---
H & P Stated Complaint: vertigo Time Seen by Provider: 07/10/18 12:52 HPI/ROS: CHIEF COMPLAINT: Vertigo, psychiatric HISTORY OF PRESENT ILLNESS: The patient is a 52-year-old female with a history of bipolar, PTSD and borderline personality disorder as well as chronic abdominal pain with multiple small-bowel obstructions generated by an exploratory laparotomy at age 16. She has been seen several times recently for the severe intermittent vertigo. No focal weakness or deficits. Her sister states that last time she had vertigo this bad and she did not receive medication she went into a catatonic state and ended up requiring admission for psychiatric reasons. She states that this was at [facility] and they did an EEG, MRI, CT scan and several other tests all of which were negative. The patient had been on Seroquel and Zyprexa until about 2 months ago when she was switched to Lamictal. Sister states that she had been doing pretty well other than mild intermittent vertigo until about 2 hr ago when it again became severe. Currently the patient is lying in bed with her eyes closed and will not answer questions and is clutching onto her sisters arm. Her sister describes the symptoms as a spinning sensation. No reported chest pain or headache. No recent fevers or illness. Sister states that Ativan usually helps significantly with her symptoms. Patient also has a history of chronic nausea and has been seen by GI and has an upper endoscopy planned in a couple of weeks. Severity: Severe Modifying factors: Medications REVIEW OF SYSTEMS: Per sister Constitutional: denies: chills, fever, recent illness, recent injury EENTM: denies: blurred vision, double vision, nose congestion Respiratory: denies: cough, shortness of breath Cardiac: denies: chest pain, irregular heart rate, lightheadedness, palpitations Gastrointestinal/Abdominal: denies: abdominal pain, diarrhea, nausea, vomiting, blood streaked stools Genitourinary: denies: dysuria, frequency, hematuria, pain Musculoskeletal: denies: joint pain, muscle pain Skin: denies: lesions, rash, jaundice, bruising Neurological: See HPI denies: headache, numbness, paresthesia, tingling, weakness Hematologic/Lymphatic: denies: blood clots, easy bleeding, easy bruising Immunologic/allergic: denies: HIV/AIDS, transplant 10 systems reviewed and negative except as noted EXAM: GENERAL: Eyes closed, 1 answer questions, clutching to her sister's arm HEAD: Atraumatic, normocephalic. EYES: No nystagmus, eyelids opened forcibly. Pupils equal round and reactive to light, extraocular movements intact, sclera anicteric, conjunctiva are normal. ENT: TMs normal, nares patent, oropharynx clear without exudates. Moist mucous membranes. NECK: Normal range of motion, supple without lymphadenopathy or JVD. LUNGS: Breath sounds clear to auscultation bilaterally and equal. No wheezes rales or rhonchi. HEART: Regular rate and rhythm without murmurs, rubs or gallops. ABDOMEN: Soft, nontender, normoactive bowel sounds. No guarding, no rebound. No masses appreciated. BACK: No CVA tenderness, no spinal tenderness, step-offs or deformities EXTREMITIES: Normal range of motion in all extremities, no pitting or edema. No clubbing or cyanosis. NEUROLOGICAL: Cranial nerves II through XII grossly intact with limited evaluation. Not speaking voluntarily. 5/5 strength, normal movement in all extremities, normal sensation, normal reflexes PSYCH: Not answering questions SKIN: Warm, dry, normal turgor, no visible rashes or lesions. Source: Patient, Family Exam Limitations: Clinical condition - Medical/Surgical History Hx Asthma: No Hx Chronic Respiratory Disease: No Hx Diabetes: No Hx Cardiac Disease: No Hx Renal Disease: No Hx Cirrhosis: No Hx Alcoholism: No Hx HIV/AIDS: No Hx Splenectomy or Spleen Trauma: No Other PMH: Chronic intermittent vertigo, chronic abdominal pain, bipolar, borderline, PTSD, Narcotic dependency - Family History Significant Family History: No pertinent family hx - Social History Smoking Status: Current every day smoker Alcohol Use: Sober Drug Use: None Constitutional: Initial Vital Signs Temperature (C) 36.4 C 07/10/18 12:28 Heart Rate 102 H 07/10/18 12:28 Respiratory Rate 18 07/10/18 12:28 Blood Pressure 95/77 L 07/10/18 12:28 O2 Sat (%) 94 07/10/18 12:28 O2 Delivery Mode Room Air O2 (L/minute) 2 Allergies/Adverse Reactions: cariprazine Allergy (Verified 09/29/17 11:41) Home Medications: Medication Instructions Recorded Cholecalciferol Vit D3 [Vitamin D3 2,000 units PO DAILY each 10/05/17 2000 units tab (OTC)] Divalproex [Depakote] 500 mg PO BID #60 tab 10/05/17 Folic Acid [Folic Acid 1 MG (*)] 1 mg PO DAILY tab 10/05/17 OLANZapine [Zyprexa] 5 mg PO DAILY PRN 15 Days #15 10/05/17 tablet [place]-3 Fatty Acids [Fish Oil 1000 1,000 mg PO DAILY cap 10/05/17 mg (*)] QUEtiapine FUMARATE [Seroquel 200 400 mg PO BID 30 Days tab 10/05/17 mg (*)] Quetiapine Fumarate [Seroquel] 400 mg PO BID #60 tablet 10/05/17 clonazePAM [klonoPIN (*)] 1 mg PO HS #30 tab 10/05/17 metFORMIN HCL [Metformin HCl] 500 mg PO BIDMEAL #60 tablet 10/05/17 Meclizine HCl [Meclizine HCl 25 mg 25 mg PO BID #20 tab 07/10/18 (RX,OTC)] Medical Decision Making - Diagnostics Imaging: Discussed imaging studies w/ tie maker Radiologist ED Course/Re-evaluation: 2:50 p.m. the patient is sleeping comfortably. Her sister states that she seems much better. The records have not yet been obtained from [facility]. 3:40 p.m. the patient is more alert and is answering questions. She and her sister are requesting meclizine. 4:10 p.m. The patient has been seen by case management. They have home health and physical therapy and occupational therapy arranged. They have recently discharged from [facility]. Patient continues to feel better. 4:30 p.m. I was able to obtain records from [facility]. She was discharged about 1 week ago. She had an MRI of her brain that was normal as well as an EEG that was normal as well as a CT scan was normal. She also has CT of her abdomen and pelvis and an ultrasound of her abdomen that was normal. She was evaluated by Mental Health and discharged to [facility] for continued mental health treatment. 6:50 p.m. the patient is feeling much better and is asking to go home. She is asking for prescription for meclizine. Differential Diagnosis: Partial list of the Differential diagnosis considered include but were not limited to; anxiety, vertigo, borderline personality, bipolar and although unlikely based on the history and physical exam, I also considered infection, stroke, dissection, seizure. - Data Points Laboratory Results: Laboratory Results 07/10/18 12:30 07/10/18 12:30 Medications Given: Discontinued Medications Sodium Chloride (Ns) 1,000 mls @ 0 mls/hr IV ONCE ONE; Wide Open PRN Reason: Protocol Stop: 07/10/18 13:04 Last Admin: 07/10/18 13:14 Dose: 1,000 mls Lorazepam (Ativan Injection) 2 mg IVP EDNOW ONE Stop: 07/10/18 12:59 Last Admin: 07/10/18 12:59 Dose: 2 mg Meclizine HCl (Meclizine Hcl) 50 mg PO EDNOW ONE Stop: 07/10/18 15:45 Last Admin: 07/10/18 15:46 Dose: 50 mg Olanzapine (Zyprexa Injection) 5 mg IV EDNOW ONE Stop: 07/10/18 13:06 Last Admin: 07/10/18 13:13 Dose: 5 mg Departure - Departure Disposition: Home, Routine, Self-Care Clinical Impression: Borderline personality disorder, Bipolar disorder, curr episode depressed, severe, w/psychotic features, Chronic vertigo Condition: Fair Instructions: Vertigo (ED), Bipolar Disorder (ED) Referrals: Patient,NotPresent [Unknown] - As per Instructions Christopher Castro MD [Medical Doctor] - 5-7 days, call for appt. Prescriptions: Meclizine HCl [Meclizine HCl 25 mg (RX,OTC)] 25 mg PO BID #20 tab
[2018-07-10] MEDS ORDERED: MECLIZINE HCL 25 MG TAB PO ONE (15:44)
[2018-07-10] MEDS ORDERED: MECLIZINE HCL 25 MG TAB ONE (15:45)
[2018-07-10 19:22] VITALS: BP 125/72
--- NOTE | 2018-07-11 09:40 | ASMTCMCOM ---
CM Note CM Note Notes: Late Entry from 07/10/18: Received a call from London Hong ([phone]) with [facility] ( ); pt was to start receiving their HC services (including a behavioral health RN) on 07/10 but patient came to the ED. Pt was recently discharged from [facility] on 07/07/18. Pt was stabilized in the ED and discharged home with her sister, a Rxn for meclizine and to have HC services start today. Spoke /Oct and faxed referral via [email or web address] with updated ED visit report and new Rxn. CM available for further assistance if needed. Date Signed: 07/11/2018 09:39 AM Electronically Signed By:Shara Robin RN
== END 2018-07-10 19:22 | disposition home or self-care (01) ==
LOC: EDUNIT#
DX: F60.3 Borderline personality disorder (principal); F32.3 Major depressive disorder, single episode, severe with psychotic features; R42 Dizziness and giddiness; F17.200 Nicotine dependence, unspecified, uncomplicated
CPT/HCPCS: 70450; 96374; 96375; 99285; J2060; G0480

== ENCOUNTER → 2018-11-29 | Day surgery (SDC) | payer OTHER | END | disposition home or self-care (01) | LOC: FIMAGING 14:03 | PROVIDERS: ATTEND Internal Medicine | PROC: 02HV33Z Insertion of Infusion Device into Superior Vena Cava, Percutaneous Approach (ICD-10-PCS; principal; 2018-11-29) | DX: E46 Unspecified protein-calorie malnutrition (principal); E86.0 Dehydration; K52.9 Noninfective gastroenteritis and colitis, unspecified; R11.2 Nausea with vomiting, unspecified | CPT/HCPCS: 36573; 76937; 77001; C1751 ==